=== PATIENT | female | born 1995 | race Hispanic/Latino ===

== ENCOUNTER 2017-09-14 18:47 | Emergency (ER) | payer OTHER ==
--- NOTE | 2017-09-14 19:53 | ED PDOC ---
Arrival/HPI - General Chief Complaint: Psychiatric Evaluation Time Seen by Provider: 09/14/17 19:01 Historian: Patient - History of Present Illness Narrative History of Present Illness (Text): 09/14/17 19:50 22yo female with history of bipolar present to ED for psychiatric evaluation. States she had "bipolar episode". she report yelling at someone and scratching her self. States she is on medication and complaint with her medication. She denies SI/HI, hallucination, any somatic complaint. Past Medical History - Provider Review Nursing Documentation Reviewed: Yes - Psychiatric Hx Bipolar Disorder: Yes Hx Substance Use: No Family/Social History - Physician Review Nursing Documentation Reviewed: Yes Family/Social History: Unknown Family HX Smoking Status: Current Some Days Smoker Hx Alcohol Use: Yes Frequency of alcohol use: Socially Hx Substance Use: No Allergies/Home Meds Allergies/Adverse Reactions: Allergies No Known Allergies Allergy (Verified 09/14/17 19:00) Home Medications: Home Meds Medication Instructions Recorded Confirmed Aripiprazole [Abilify] 30 mg PO DAILY 09/14/17 09/14/17 Gabapentin [Neurontin] 300 mg PO HS 09/14/17 09/14/17 clonazePAM [Klonopin] 0.5 mg PO DAILY 09/14/17 09/14/17 Review of Systems - Physician Review All systems were reviewed & negative as marked: Yes - Review of Systems Constitutional: Normal Eyes: Normal ENT: Normal Respiratory: Normal Cardiovascular: Normal Gastrointestinal: Normal Genitourinary Female: Normal Musculoskeletal: Normal Skin: Normal Neurological: Normal Endocrine: Normal Hemo/Lymphatic: Normal Psychiatric: Other (Bipolar episode) Physical Exam Vital Signs Reviewed: Yes Vital Signs Temp Pulse Resp BP Pulse Ox 09/14/17 18:52 98.3 F 81 18 90/43 L 99 Temperature: Afebrile Blood Pressure: Normal Pulse: Regular Respiratory Rate: Normal Appearance: Positive for: Well-Appearing, Non-Toxic, Comfortable Pain Distress: None Mental Status: Positive for: Alert and Oriented X 3 - Systems Exam Head: Present: Atraumatic, Normocephalic Pupils: Present: PERRL Extroacular Muscles: Present: EOMI Conjunctiva: Present: Normal Mouth: Present: Moist Mucous Membranes Neck: Present: Normal Range of Motion Respiratory/Chest: Present: Clear to Auscultation, Good Air Exchange. No: Respiratory Distress, Accessory Muscle Use Cardiovascular: Present: Regular Rate and Rhythm, Normal S1, S2. No: Murmurs Abdomen: No: Tenderness, Distention, Peritoneal Signs Back: Present: Normal Inspection Upper Extremity: Present: Normal Inspection. No: Cyanosis, Edema Lower Extremity: Present: Normal Inspection. No: Edema Neurological: Present: GCS=15, CN II-XII Intact, Speech Normal Skin: Present: Warm, Dry, Normal Color. No: Rashes Psychiatric: Present: Alert, Oriented x 3, Normal Insight, Normal Concentration Medical Decision Making ED Course and Treatment: 09/15/17 00:46 Pt presented for stated history. She was hemodynamically stable in emergency department . AAO x3. UDS +THC EKG NSR @73bpm Pt was medically cleared and was seen in emergency department by MIRTHA Callejas. She DC with the psychiatrist and pt was DC home to follow up outpt mental clinic. - Lab Interpretations Lab Results: 09/14/17 20:55 09/14/17 20:55 Lab Results 09/14/17 21:02: Urine Opiates Screen Negative, Urine Methadone Screen Negative, Ur Barbiturates Screen Negative, Ur Phencyclidine Scrn Negative, Ur Amphetamines Screen Negative, U Benzodiazepines Scrn Negative, U Oth Cocaine Metabols Negative, U Cannabinoids Screen Positive H 09/14/17 21:02: Urine Color Light yellow, Urine Appearance Clear, Urine pH 7.5, Ur Specific [place] 1.010, Urine Protein Negative, Urine Glucose (UA) Negative, Urine Ketones Negative, Urine Blood Negative, Urine Nitrate Negative, Urine Bilirubin Negative, Urine Urobilinogen 0.2, Ur Leukocyte Esterase Negative 09/14/17 20:55: Alcohol, Quantitative < 10 09/14/17 20:55: Salicylates < 1 L, Acetaminophen < 10.0 L 09/14/17 20:55: Sodium 142, Potassium 3.8, Chloride 107, Carbon Dioxide 25, Anion Gap 14, BUN 11, Creatinine 0.8, Est GFR ( Amer) > 60, Est GFR (Non- Af Amer) > 60, Random Glucose 88, Calcium 9.1, Magnesium 2.1, Total Bilirubin 0.3, AST 23, ALT 27, Alkaline Phosphatase 50, Total Protein 7.2, Albumin 3.9, Globulin 3.3, Albumin/Globulin Ratio 1.2 09/14/17 20:55: WBC 10.2, RBC 4.41, Hgb 11.8 L, Hct 36.1, MCV 81.9, MCH 26.8, MCHC 32.7, RDW 15.7 H, Plt Count 333, MPV 8.8, Gran % 63.2, Lymph % (Auto) 27.5 , [place] % (Auto) 8.5 H, Eos % (Auto) 0.5 L, Baso % (Auto) 0.3, Gran # 6.42, Lymph # (Auto) 2.8, [place] # (Auto) 0.9 H, Eos # (Auto) 0.1, Baso # (Auto) 0.03 Disposition/Present on Arrival - Present on Arrival Any Indicators Present on Arrival: No History of DVT/PE: No History of Uncontrolled Diabetes: No Urinary Catheter: No History of Decub. Ulcer: No History Surgical Site Infection Following: None - Disposition Have Diagnosis and Disposition been Completed?: Yes Diagnosis: Bipolar 1 disorder Disposition: HOME/ ROUTINE Disposition Time: 11:30 Patient Plan: Discharge Patient Problems: Current Active Problems Problem Status Onset Bipolar 1 disorder Acute Condition: STABLE Discharge Instructions (ExitCare): Bipolar Disorder (DC) Additional Instructions: Follow up with outpatient clinic Return to emergency department for any new symptoms Referrals: Anjali Nichole, [Primary Care Provider] - Follow up with primary Forms: RNDOMN (Swazi)
[2017-09-14 21:11] LABS: PH,URINE 7.5 (4.7-8.0); URINE BILIRUBIN NEGATIVE (NEGATIVE); URINE BLOOD NEGATIVE (NEGATIVE); URINE GLUCOSE (UA) NEGATIVE (NEGATIVE); URINE LEUKOCYTE ESTERASE NEGATIVE Leu/uL (NEGATIVE); URINE PROTEIN NEGATIVE mg/dL (<30 mg/dL); URINE UROBILINOGEN 0.2 E.U./dL (<1 E.U./dL)
[2017-09-14 21:11] LABS: BASO # 0.03 K/mm3 (0.0-2.0); BASO % 0.3 % (0.0-3.0); EOS # 0.1 (0.0-0.7); EOS % 0.5 % (1.5-5.0); GRAN # 6.42 (1.4-6.5); GRAN % 63.2 % (50.0-68.0); HEMOGLOBIN 11.8 g/dL (12.0-16.0); LYMPH # 2.8 (1.2-3.4); LYMPH % 27.5 % (22.0-35.0); MEAN CELL VOLUME 81.9 fl (80.0-105.0); MEAN CORPUSCULAR HEMOGLOBIN 26.8 pg (25.0-35.0); MEAN CORPUSCULAR HGB CONC 32.7 g/dl (31.0-37.0); MEAN PLATELET VOLUME 8.8 fl (7.0-11.0); MONO # 0.9 (0.1-0.6); MONO % 8.5 % (1.0-6.0); RBC 4.41 10^6/uL (3.5-6.1); RED CELL DISTRIBUTION WIDTH 15.7 % (11.5-14.5); WHITE BLOOD COUNT 10.2 10^3/ul (4.5-11.0)
[2017-09-14 21:13] LABS: URINE APPEARANCE CLEAR (CLEAR); URINE COLOR LIGHT YELLOW (YELLOW)
[2017-09-14 21:15] LABS: ACETAMINOPHEN < 10.0 ug/ml (10.0-20.0); SALICYLATE < 1 mg/dL (2.0-20.0)
[2017-09-14 21:16] LABS: ALB/GLOB RATIO 1.2 (1.1-1.8); ALBUMIN 3.9 g/dL (3.0-4.8); ALT/SGPT 27 U/L (7-56); AST/SGOT 23 U/L (14-36); BLOOD UREA NITROGEN 11 mg/dL (7-21); CALCIUM 9.1 mg/dL (8.4-10.5); GFR AFRICAN-AMERICAN > 60; GFR NON-AFRICAN AMERICAN > 60
[2017-09-14 21:30] LABS: BENZODIAZEPINES, UR NEGATIVE (NEGATIVE)
[2017-09-14 21:31] LABS: BARBITURATES, UR NEGATIVE (NEGATIVE); OPIATES, UR NEGATIVE (NEGATIVE); PHENCYCLIDINE, UR NEGATIVE (NEGATIVE)
[2017-09-15 01:34] VITALS: BP 118/72; PULSE 86; RESP 16; TEMP 98.6; O2SAT 98
--- NOTE | 2017-09-15 09:18 | CARD ---
APPROVED REPORT EKG Measurement Heart [id number] <Conclusion> Normal sinus rhythm with sinus arrhythmia Normal ECG
== END 2017-09-15 00:55 | disposition home or self-care (01) ==
LOC: ED 18:47
DX: F31.9 Bipolar disorder, unspecified (principal)